=== PATIENT | female | born 1980 | race American Indian/Alaskan Native ===

== ENCOUNTER 2017-12-17 12:09 | Outpatient (CLI) | payer OTHER ==
--- NOTE | 2017-12-17 13:47 | XRay Report ---
THORACIC SPINE, 2 VIEWS: HISTORY: back pain. Normal bone mineralization. There is a mild dextrocurvature of the thoracic spine estimated at 5-10 degrees. Mild multilevel degenerative disc spurring is noted throughout the thoracic region. No evidence for fracture, subluxation or bone lesion. The posterior ribs are intact. IMPRESSION: Mild dextroscoliosis of the thoracic spine with early degenerative changes.
--- NOTE | 2017-12-17 13:48 | XRay Report ---
LUMBOSACRAL SPINE, 3 VIEWS: History: Back pain Findings: Normal bone mineralization. There is normal height and alignment of the lumbar vertebral bodies. No fracture, malalignment or bone lesion. The disc spaces are within normal limits. There is mild diffuse facet arthropathy. The sacrum and SI joints are unremarkable. Impression: Mild facet arthropathy throughout the lumbar region. No acute process.
== END 2017-12-17 12:10 | disposition home or self-care (01) ==
LOC: XRAY 12:09
PROVIDERS: ATTEND Internal Medicine
DX: M41.84 Other forms of scoliosis, thoracic region (principal); M47.894 Other spondylosis, thoracic region; M12.88 Other specific arthropathies, not elsewhere classified, other specified site
CPT/HCPCS: 72070; 72100